=== PATIENT | male | born 1955 | race Caucasian/White ===

== ENCOUNTER 2017-07-19 04:10 | Emergency (ER) | payer BC ==
[2017-07-19] MEDS ORDERED: Sodium Chloride 0.9% 1,000 ML IV ONE (04:16)
[2017-07-19] MEDS ORDERED: Albuterol/Ipratropium 3.0-0.5 MG/3 ML Neb Soln NEB ONE (04:16)
[2017-07-19] MEDS ORDERED: Acetaminophen 500 MG Tab PO ONE (04:17)
--- NOTE | 2017-07-19 04:23 | EDM.PDOC ---
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 Patient said he had about 5 or 6 episodes of diarrhea yesterday but no diarrhea today and he feels like he might be dehydrated. Patient denies any chest pain or shortness of breath or abdominal pain and has not been vomiting. Patient says he has profound body aches but no one focal area of discomfort. He wants to just try to get back home where he has a family doctor and has an appointment with that Dr. ceron this week. Review of systems: As per history of present illness and below otherwise all systems reviewed and negative. Past medical history: As per history of present illness and as reviewed below otherwise noncontributory. Surgical history: As per history of present illness and as reviewed below otherwise noncontributory. Social history: No reported history of drug or alcohol abuse. Family history: As per history of present illness and as reviewed below otherwise noncontributory. Physical exam: General: Well-developed well-nourished male with a dry hacking cough in the ER but was not breathless with my conversation and has no hoarse or muffled voice. Vital signs are noted by me. HEENT: Atraumatic, normocephalic, pupils reactive, negative for conjunctival pallor or scleral icterus, mucous membranes moist, throat clear of exudates but there is posterior oropharyngeal erythema and no cervical adenopathy or nuchal rigidity, neck supple, nontender, trachea midline. Lungs: Clear to auscultation with an occasional coarse breath sound but no wheezing or stridor, breath sounds equal bilaterally, chest nontender. Heart: S1S2, regular rate and rhythm no overt murmurs Abdomen: Soft, nondistended, nontender. Negative for masses or hepatosplenomegaly. Negative for costovertebral tenderness. Pelvis: Stable nontender. Genitourinary: Deferred. Rectal: Deferred. Extremities: Atraumatic, negative for cords or calf pain. Neurovascular unremarkable. Neuro: Awake, alert, oriented. Cranial nerves II through XII unremarkable. Cerebellum unremarkable. Motor and sensory unremarkable throughout. Exam nonfocal. Diagnostics: Influenza rapid strep chest x-ray CBC CMP Therapeutics: IV fluids duo neb Tylenol Impression: Viral URI with cough/bronchitis, diarrhea resolved Definitive disposition and diagnosis as appropriate pending reevaluation and review of above. throat Pain Score (Numeric/FACES): 3 - Related Data Allergies Allergy/AdvReac Type Severity Reaction Status Date / Time No Known Allergies Allergy Verified 07/19/17 04:37 Home Meds: Home Meds Unrecalled Cholesterol Meds 07/19/17 [History] ED ROS GENERAL - Review of Systems Review Of Systems: ROS reveals no pertinent complaints other than HPI. ED EXAM, GENERAL - Physical Exam Exam: See Below (See dictation) Course - Vital Signs Last Recorded V/S: Last Vital Signs Temp 37.9 C 07/19/17 04:26 Pulse 90 07/19/17 04:14 Resp 24 H 07/19/17 04:14 BP 123/74 07/19/17 04:14 Pulse Ox 94 L 07/19/17 04:14 - Orders/Labs/Meds Orders: Active Orders 24 hr Category Date Time Status RT Aerosol Therapy [RC] ASDIRECTED Care 07/19/17 04:17 Active Chest 2V [CR] Stat Exams 07/19/17 04:17 Taken COMPREHENSIVE METABOLIC PN,CMP [CHEM] Stat Lab 07/19/17 04:25 Received CULTURE STREP A CONFIRMATION [RM] Stat Lab 07/19/17 04:22 Results STREP SCRN A RAPID W CULT CONF [RM] Stat Lab 07/19/17 04:22 Results Sodium Chloride 0.9% [Normal Saline] 1,000 ml Med 07/19/17 04:16 Active IV STAT Medication Orders Sodium Chloride (Normal Saline) 1,000 mls @ 999 mls/hr IV STAT ONE Stop: 07/19/17 05:16 Last Admin: 07/19/17 04:27 Dose: 999 mls/hr Labs: Laboratory Tests 07/19/17 Range/Units 04:25 WBC 7.87 (4.0-11.0) K/uL RBC 4.60 (4.50-5.90) M/uL Hgb 14.7 (13.0-17.0) g/dL Hct 41.6 (38.0-50.0) % MCV 90.4 (80.0-98.0) fL MCH 32.0 (27.0-32.0) pg MCHC 35.3 (31.0-37.0) g/dL RDW Std Deviation 44.7 (28.0-62.0) fl RDW Coeff of John 14 (11.0-15.0) % Plt Count 142 L (150-400) K/uL MPV 11.20 (7.40-12.00) fL Neut % (Auto) 74.5 (48.0-80.0) % Lymph % (Auto) 12.3 L (16.0-40.0) % Nance % (Auto) 12.7 (0.0-15.0) % Eos % (Auto) 0.4 (0.0-7.0) % Baso % (Auto) 0.1 (0.0-1.5) % Neut # (Auto) 5.9 H (1.4-5.7) K/uL Lymph # (Auto) 1.0 (0.6-2.4) K/uL Nance # (Auto) 1.0 H (0.0-0.8) K/uL Eos # (Auto) 0.0 (0.0-0.7) K/uL Baso # (Auto) 0.0 (0.0-0.1) K/uL Nucleated RBC % 0.0 /100WBC Nucleated RBCs # 0 K/uL Meds: Medications Generic Name Dose Route Start Last Admin Trade Name Freq PRN Reason Stop Dose Admin Sodium Chloride 1,000 mls @ 999 mls/hr 07/19/17 04:16 07/19/17 04:27 Normal Saline IV 07/19/17 05:16 999 mls/hr STAT ONE Administration Discontinued Medications Generic Name Dose Route Start Last Admin Trade Name Freq PRN Reason Stop Dose Admin Acetaminophen 1,000 mg 07/19/17 04:17 07/19/17 04:26 Tylenol Extra Strength PO 07/19/17 04:18 1,000 mg ONETIME ONE Administration Albuterol/Ipratropium 3 ml 07/19/17 04:16 01/14/18 04:27 Duoneb 3.0-0.5 Mg/3 Ml NEB 07/19/17 04:17 3 ml ONETIME ONE Administration Departure - Departure Time of Disposition: 05:10 Disposition: Home, Self-Care 01 Condition: Good Clinical Impression: Viral URI with cough, Bronchitis - Discharge Information Forms: ED Department Discharge Additional Instructions: The following information is given to patients seen in the emergency department who are being discharged to home. This information is to outline your options for follow-up care. We provide all patients seen in our emergency department with a follow-up referral. The need for follow-up, as well as the timing and circumstances, are variable depending upon the specifics of your emergency department visit. If you don't have a primary care physician on staff, we will provide you with a referral. We always advise you to contact your personal physician following an emergency department visit to inform them of the circumstance of the visit and for follow-up with them and/or the need for any referrals to a consulting specialist. The emergency department will also refer you to a specialist when appropriate. This referral assures that you have the opportunity for followup care with a specialist. All of these measure are taken in an effort to provide you with optimal care, which includes your followup. Under all circumstances we always encourage you to contact your private physician who remains a resource for coordinating your care. When calling for followup care, please make the office aware that this follow-up is from your recent emergency room visit. If for any reason you are refused follow-up, please contact the [facility] emergency department at and ask to speak to the emergency department charge nurse. [facility] Primary care- Internal Medicine and Family [address] [address] If you stay in the area please contact our clinic for follow-up appointment early this week and if you go home please keep your scheduled appointment with your provider. Push hydration such as Gatorade water and juices and avoid caffeinated products. Please reduce to refrain from smoking cigarettes. Return to ER as needed and as discussed Please use the albuterol inhaler your been given via [employer] as well as the [facility] [employer].. Use the albuterol with the spacer you have been given - My Orders Last 24 Hours: My Active Orders 07/19/17 04:16 Sodium Chloride 0.9% [Normal Saline] 1,000 ml IV STAT 07/19/17 04:17 RT Aerosol Therapy [RC] ASDIRECTED Chest 2V [CR] Stat 07/19/17 04:22 CULTURE STREP A CONFIRMATION [RM] Stat STREP SCRN A RAPID W CULT CONF [RM] Stat 07/19/17 04:25 COMPREHENSIVE METABOLIC PN,CMP [CHEM] Stat - Assessment/Plan Last 24 Hours: My Active Orders 07/19/17 04:16 Sodium Chloride 0.9% [Normal Saline] 1,000 ml IV STAT 07/19/17 04:17 RT Aerosol Therapy [RC] ASDIRECTED Chest 2V [CR] Stat 07/19/17 04:22 CULTURE STREP A CONFIRMATION [RM] Stat STREP SCRN A RAPID W CULT CONF [RM] Stat 07/19/17 04:25 COMPREHENSIVE METABOLIC PN,CMP [CHEM] Stat
[2017-07-19 04:55] LABS: CHLORIDE,CL 107 mmol/L (98-110); SODIUM,NA 136 mmol/L (136-146)
--- NOTE | 2017-07-20 19:06 | CR ---
EXAM DATE: 07/19/17 PATIENT'S AGE: 62 [facility] Facility: [place], [place] Site . Site : [id number] Study: XRay Chest [id number]/[id number] 4:43:30 AM Ordering Physician: Jonah Foreman Final Report: INDICATION: Cough, Fever TECHNIQUE: Chest radiograph 2 views COMPARISON: None FINDINGS: Mediastinum: The heart silhouette is normal in size and morphology. The mediastinum is normal in appearance. Lungs: Mild left basilar subsegmental atelectasis is noted. No sign of pleural effusion seen. No pneumothorax is identified. Bones and soft tissue: Unremarkable for age. IMPRESSION: 1. Mild left basilar subsegmental atelectasis is noted. Dictated by: Dequan Aguirre MD @ 07/19/2017 04:46:44 (Electronic Signature) Report Signed by Proxy. [facility] SYSTEMIsaac
== END 2017-07-19 05:28 | disposition home or self-care (01) ==
LOC: MW.ED 04:10
DX: J06.9 Acute upper respiratory infection, unspecified (principal); J40 Bronchitis, not specified as acute or chronic; R19.7 Diarrhea, unspecified
CPT/HCPCS: 36415; 71046; 80053; 85025; 87081; 87804; 87880; 94640; 96360; 99284; A9270; J7040